=== PATIENT | female | born 1985 | race African-American/Black ===

== ENCOUNTER 2016-11-07 06:04 | Emergency (ER) | payer MEDICAID, MEDICARE ==
[~2016-11-07] VITALS: Ht 160 cm; Wt 73.0 kg
[~2016-11-07 06:04] MED LIST: PREN-88 PO; PRENATAL
[2016-11-07 07:33] LABS: HEMOGLOBIN 12.2 g/dL (12.0-16.0); MEAN CORPUSCULAR HEMOGLOBIN 30.7 pg (28.0-32.0); MEAN CORPUSCULAR VOLUME 93.1 fL (81.0-99.0); PLATELET 263 x1000/uL (130-400); RED BLOOD CELL COUNT 3.98 mill/uL (4.2-5.4); RED CELL DISTRIBUTION WIDTH 16.2 % (11.6-14.6); WHITE BLOOD COUNT 9.6 x1000/uL (4.5-11.0)
[2016-11-07 07:35] LABS: ANION GAP 14; CALCIUM 8.9 mg/dL (8.5-10.1); CARBON DIOXIDE 25 mEq/L (21-32); CHLORIDE 102 mEq/L (98-107); INDEX HEMOLYSI 1 (1-3); INDEX ICTERIC 1 (1-4); INDEX LIPEMIC 1 (1-3); UREA NITROGEN BLOOD 6 mg/dL (7-21); eGFR > 60 mL/min (>60)
[2016-11-07 08:03] LABS: HCG SCREEN NEGATIVE
[2016-11-07] MEDS ORDERED: HYDROCODONE/ACETAMINOPHEN 5/325MG TABLET PO ONE (09:45)
[2016-11-07 10:28] VITALS: BP 121/65
== END 2016-11-07 10:43 | disposition home or self-care (01) ==
LOC: ER 06:04
DX: J18.9 Pneumonia, unspecified organism (principal); J45.909 Unspecified asthma, uncomplicated; F17.210 Nicotine dependence, cigarettes, uncomplicated; Z88.0 Allergy status to penicillin; Z88.6 Allergy status to analgesic agent; Z88.5 Allergy status to narcotic agent; Z79.899 Other long term (current) drug therapy
CPT/HCPCS: 36415; 71010; 80048; 84703; 85027; 99285

== ENCOUNTER 2017-08-05 14:14 | Emergency (ER) | payer MEDICARE ==
[~2017-08-05] VITALS: Ht 170.2 cm; Wt 85.0 kg
[2017-08-05 14:37] VITALS: BP 84/52
== END 2017-08-05 19:15 | disposition left against medical advice (07) ==
LOC: ER 14:40
DX: R42 Dizziness and giddiness (principal); R55 Syncope and collapse; J45.909 Unspecified asthma, uncomplicated; Z88.0 Allergy status to penicillin; Z88.5 Allergy status to narcotic agent; Z87.01 Personal history of pneumonia (recurrent)
CPT/HCPCS: 99283

== ENCOUNTER 2018-09-17 18:57 | Emergency (ER) | payer MEDICAID, MEDICARE ==
[~2018-09-17] VITALS: Ht 165.1 cm; Wt 68.0 kg
[2018-09-17] MEDS ORDERED: ONDANSETRON HCL 4MG/2ML INJ IV STA (20:29)
[2018-09-17] MEDS ORDERED: MORPHINE SULFATE 4 MG/ML CPJ (NOT FOR IM USE) IV STA (20:29)
[2018-09-17 20:57] LABS: CLARITY URINE CLEAR (CLEAR); COLOR URINE YELLOW (YELLOW); KETONES URINE 2+ (NEGATIVE); LEUKOCYTE ESTERASE URINE NEGATIVE (NEGATIVE); NITRITE URINE NEGATIVE (NEGATIVE); OCCULT BLOOD URINE NEGATIVE (NEGATIVE); PROTEIN URINE 2+ (NEGATIVE); SPECIFIC GRAVITY URINE 1.012 (1.005-1.030)
[2018-09-17 21:26] LABS: BASOPHILS % 1.4 % (0.0-2.0); EOSINOPHILS % 1.3 % (0.0-5.0); HEMATOCRIT. 50.7 % (36.0-48.0); HEMOGLOBIN. 16.9 g/dL (12.0-16.0); LYMPHOCYTES % 27.5 % (20.0-50.0); MEAN CORPUSCULAR HEMOGLOBIN 30.7 pg (28.0-32.0); MEAN CORPUSCULAR VOLUME 92.3 fL (81.0-99.0); MONOCYTES % 6.1 % (2.0-8.0); NEUTROPHILS % 63.7 % (40.0-76.0); RED CELL DISTRIBUTION WIDTH 18.5 % (11.6-14.6)
[2018-09-17 21:28] LABS: CHLORIDE 105 mEq/L (98-107)
[2018-09-17 21:39] LABS: HCG SCREEN INDETERMINATE
[2018-09-17] MEDS ORDERED: SODIUM CHLORIDE 0.9% 1,000 ML IV ONE (21:47)
[2018-09-17] MEDS ORDERED: GABAPENTIN 300MG CAPSULE PO ONE (22:00)
[2018-09-17] MEDS ORDERED: IOHEXOL-350 100 ML BOTTLE ONE (22:52)
[2018-09-17 23:01] LABS: PLATELET 214 x1000/uL (130-400)
[2018-09-17 23:05] VITALS: BP 120/78
== END 2018-09-17 23:44 | disposition home or self-care (01) ==
LOC: ER 18:57
DX: R07.89 Other chest pain (principal); R06.00 Dyspnea, unspecified; I10 Essential (primary) hypertension; J45.909 Unspecified asthma, uncomplicated; Z88.6 Allergy status to analgesic agent; Z88.0 Allergy status to penicillin; Z86.711 Personal history of pulmonary embolism; Z79.01 Long term (current) use of anticoagulants; Z91.14 Patient's other noncompliance with medication regimen
CPT/HCPCS: 36415; 71045; 71275; 80053; 81003; 81025; 83690; 83880; 84484; 84703; 85025; 85379; 93005; 96361; 96374; 96375; 99284; J2270; J2405; Q9967; Z7610

== ENCOUNTER 2018-11-27 19:00 | Emergency (ER) | payer MEDICARE ==
[~2018-11-27] VITALS: Ht 167.6 cm; Wt 81.0 kg
[2018-11-27 19:01] VITALS: BP 122/72
== END 2018-11-27 21:01 | disposition home or self-care (01) ==
LOC: ER 19:00
DX: S61.412A Laceration without foreign body of left hand, initial encounter (principal); F41.9 Anxiety disorder, unspecified; J45.909 Unspecified asthma, uncomplicated; F32.9 Major depressive disorder, single episode, unspecified; F17.200 Nicotine dependence, unspecified, uncomplicated; W25.XXXA Contact with sharp glass, initial encounter; Y93.89 Activity, other specified; Y92.89 Other specified places as the place of occurrence of the external cause; Y99.8 Other external cause status; Z88.0 Allergy status to penicillin; Z88.5 Allergy status to narcotic agent
CPT/HCPCS: 99281

== ENCOUNTER 2018-12-16 23:16 | Emergency (ER) | payer MEDICARE ==
[~2018-12-16] VITALS: Ht 172.7 cm; Wt 80.0 kg
[2018-12-17] MEDS ORDERED: KETOROLAC 30MG/ML VIAL IV ONE
[2018-12-17] MEDS ORDERED: ENOXAPARIN 80MG/0.8ML SYR SUBCUT NR (00:45)
[2018-12-17 00:46] LABS: HEMATOCRIT 36.4 % (36.0-48.0); HEMOGLOBIN 12.8 g/dL (12.0-16.0); MEAN CORPUSCULAR HEMOGLOBIN 33.6 pg (28.0-32.0); MEAN CORPUSCULAR VOLUME 96.1 fL (81.0-99.0); PLATELET 186 x1000/uL (130-400); RED BLOOD CELL COUNT 3.79 mill/uL (4.2-5.4); RED CELL DISTRIBUTION WIDTH 14.7 % (11.6-14.6)
[2018-12-17 00:52] LABS: CHLORIDE 105 mEq/L (98-107)
[2018-12-17 00:56] LABS: PARTIAL THROMBOPLASTIN TIME 26.9 sec (23.4-31.0)
[2018-12-17 01:17] LABS: B-HCG QUANTITATIVE 24570 mIU/mL (<3)
[2018-12-17] MEDS ORDERED: ACETAMINOPHEN 500MG TABLET PO ONE (04:15)
[2018-12-17 08:59] VITALS: BP 101/63
== END 2018-12-17 09:02 | disposition home or self-care (01) ==
LOC: ER 23:16
DX: O26.891 Other specified pregnancy related conditions, first trimester (principal); R07.89 Other chest pain; M25.512 Pain in left shoulder; O99.331 Smoking (tobacco) complicating pregnancy, first trimester; F41.9 Anxiety disorder, unspecified; F32.9 Major depressive disorder, single episode, unspecified; J45.909 Unspecified asthma, uncomplicated; Z3A.11 11 weeks gestation of pregnancy; Z86.711 Personal history of pulmonary embolism; Z79.01 Long term (current) use of anticoagulants; Z88.0 Allergy status to penicillin; R06.09 Other forms of dyspnea; Z88.6 Allergy status to analgesic agent
CPT/HCPCS: 36415; 76801; 76817; 78580; 80053; 81025; 84702; 85027; 85610; 85730; 86850; 86900; 86901; 93005; 96372; 96374; 99284; A9540; J1650; J1885

== ENCOUNTER 2019-09-29 01:55 | Emergency (ER) | payer MEDICARE ==
[~2019-09-29] VITALS: Ht 160 cm; Wt 82.4 kg
[2019-09-29] MEDS ORDERED: BACITRACIN ZINC OINT UDPKT TOP ONE (04:15)
[2019-09-29] MEDS ORDERED: LIDOCAINE HCL/PF 1% 10 MG/ML 5ML VIAL IJ ONE ×2 (04:15→06:45)
[2019-09-29] MEDS ORDERED: ACETAMINOPHEN 325MG TABLET PO ONE (05:00)
[2019-09-29 06:12] VITALS: BP 128/70
[2019-09-29] MEDS ORDERED: LIDOCAINE HCL/PF 1% 10 MG/ML 5ML VIAL ONE (06:24)
== END 2019-09-29 06:53 | disposition home or self-care (01) ==
LOC: ER 02:37
DX: S52.122A Displaced fracture of head of left radius, initial encounter for closed fracture (principal); S09.90XA Unspecified injury of head, initial encounter; J45.909 Unspecified asthma, uncomplicated; Z88.5 Allergy status to narcotic agent; Z86.711 Personal history of pulmonary embolism; Z88.0 Allergy status to penicillin; W01.0XXA Fall on same level from slipping, tripping and stumbling without subsequent striking against object, initial encounter; Y93.89 Activity, other specified; Y92.89 Other specified places as the place of occurrence of the external cause; Y99.8 Other external cause status
CPT/HCPCS: 12002; 70450; 73030; 73070; 73100; 99284; J3490

== ENCOUNTER 2019-10-05 23:10 | Emergency (ER) | payer MEDICARE ==
[~2019-10-05] VITALS: Ht 160 cm; Wt 82.0 kg
[2019-10-05 23:28] VITALS: BP 116/75
== END 2019-10-06 00:58 | disposition left against medical advice (07) ==
LOC: ER 23:10
DX: S61.412D Laceration without foreign body of left hand, subsequent encounter (principal); Z53.21 Procedure and treatment not carried out due to patient leaving prior to being seen by health care provider; X58.XXXD Exposure to other specified factors, subsequent encounter

== ENCOUNTER 2019-10-06 02:41 | Emergency (ER) | payer MEDICARE ==
[~2019-10-06] VITALS: Ht 160 cm; Wt 82.0 kg
[2019-10-06 02:57] VITALS: BP 126/79
[2019-10-06] MEDS ORDERED: ACETAMINOPHEN 325MG TABLET PO ONE (03:45)
== END 2019-10-06 04:45 | disposition home or self-care (01) ==
LOC: ER 02:41
DX: S52.121D Displaced fracture of head of right radius, subsequent encounter for closed fracture with routine healing (principal); X58.XXXD Exposure to other specified factors, subsequent encounter; J45.909 Unspecified asthma, uncomplicated; Z88.0 Allergy status to penicillin; Z88.8 Allergy status to other drugs, medicaments and biological substances
CPT/HCPCS: 29105; 99283

== ENCOUNTER 2020-09-16 14:17 | Emergency (ER) | payer MEDICAID, MEDICARE ==
[~2020-09-16] VITALS: Ht 160 cm; Wt 121.0 kg
[~2020-09-16 14:17] MED LIST changes: +ALBU90AE INH; +LEVO500T2 MT; +METR500T MT; +PROT40 MT
[2020-09-16 14:36] VITALS: BP 124/85
== END 2020-09-17 08:29 | disposition left against medical advice (07) ==
LOC: ER 14:17
DX: R68.89 Other general symptoms and signs (principal); Z53.21 Procedure and treatment not carried out due to patient leaving prior to being seen by health care provider

== ENCOUNTER 2020-10-05 22:44 | Emergency (ER) | payer MEDICARE ==
[~2020-10-05] VITALS: Ht 165.1 cm; Wt 100.0 kg
[2020-10-05 22:58] VITALS: BP 150/90
[2020-10-05] MEDS ORDERED: ACETAMINOPHEN 325MG TABLET PO ONE (23:15)
[2020-10-06] MEDS ORDERED: IBUP-2029 MT (00:59)
[2020-10-06] MEDS ORDERED: DEXT15DR5 EACHEYE (00:59)
== END 2020-10-06 01:12 | disposition home or self-care (01) ==
LOC: ER 22:44
DX: H57.89 Other specified disorders of eye and adnexa (principal); F41.9 Anxiety disorder, unspecified; F12.10 Cannabis abuse, uncomplicated; Z79.899 Other long term (current) drug therapy; Z88.5 Allergy status to narcotic agent
CPT/HCPCS: 99283

== ENCOUNTER 2021-01-17 09:51 | Emergency (ER) | payer MEDICARE ==
[~2021-01-17] VITALS: Ht 180.3 cm; Wt 100.0 kg
[~2021-01-17 09:51] MED LIST changes: +DEXT15DR5 EACHEYE; +IBUP-2029 MT
[2021-01-17] MEDS ORDERED: OLANZAPINE 10 MG/VIAL IM ONE (10:15)
[2021-01-17] MEDS ORDERED: OLANZAPINE 5MG TABLET ODT PO ONE (10:15)
[2021-01-17 12:15] LABS: CLARITY URINE CLEAR (CLEAR); COLOR URINE YELLOW (YELLOW); KETONES URINE TRACE (NEGATIVE); LEUKOCYTE ESTERASE URINE NEGATIVE (NEGATIVE); NITRITE URINE NEGATIVE (NEGATIVE); OCCULT BLOOD URINE TRACE (NEGATIVE); PROTEIN URINE NEGATIVE (NEGATIVE); UROBILINOGEN URINE 0.2 E.U./dL (0.2-1.0)
[2021-01-17 12:16] LABS: CHLORIDE 116 mEq/L (98-107)
[2021-01-17 12:35] LABS: *AMPHETAMINES SCREEN URINE NEGATIVE (NEGATIVE); *BARBITURATES SCREEN URINE NEGATIVE (NEGATIVE)
[2021-01-17 12:36] LABS: *BENZODIAZEPINES SCREEN URINE NEGATIVE (NEGATIVE); *COCAINE SCREEN URINE NEGATIVE (NEGATIVE); METHADONE URINE SCREEN NEGATIVE (NEGATIVE); OPIATES URINE SCREEN NEGATIVE (NEGATIVE); PHENCYCLIDINE URINE SCREEN NEGATIVE (NEGATIVE)
[2021-01-17 12:45] LABS: BASOPHILS % 0.2 % (0.0-2.0); EOSINOPHILS % 1.2 % (0.0-5.0); HEMATOCRIT. 41.2 % (36.0-48.0); HEMOGLOBIN. 13.9 g/dL (12.0-16.0); LYMPHOCYTES % 38.4 % (20.0-50.0); MEAN CORPUSCULAR HEMOGLOBIN 31.9 pg (28.0-32.0); MEAN CORPUSCULAR VOLUME 94.8 fL (81.0-99.0); NEUTROPHILS % 50.2 % (40.0-76.0); PLATELET 182 x1000/uL (130-400); RED BLOOD CELL COUNT 4.35 mill/uL (4.2-5.4); RED CELL DISTRIBUTION WIDTH 18.3 % (11.6-14.6)
[2021-01-17 12:49] LABS: CANNABINOID URINE SCREEN PRESUMTIVE POSITIVE (NEGATIVE)
[2021-01-17 16:00] VITALS: BP 118/98
== END 2021-01-17 16:35 | disposition home or self-care (01) ==
LOC: ER 09:58
DX: T40.0X1A Poisoning by opium, accidental (unintentional), initial encounter (principal); R45.1 Restlessness and agitation; R74.01 Elevation of levels of liver transaminase levels; Y92.9 Unspecified place or not applicable
CPT/HCPCS: 36415; 80053; 80305; 81003; 81025; 85025; 96372; 99285; J3490; Z7610

== ENCOUNTER 2021-04-28 20:24 | Emergency (ER) | payer MEDICARE | END 2021-04-28 20:57 | disposition left against medical advice (07) | LOC: ER 20:24 | DX: Z53.21 Procedure and treatment not carried out due to patient leaving prior to being seen by health care provider (principal) ==

== ENCOUNTER 2021-04-29 09:26 | Emergency (ER) | payer MEDICARE ==
[~2021-04-29] VITALS: Ht 160 cm; Wt 84.0 kg
[2021-04-29] MEDS ORDERED: SODIUM CHLORIDE 0.9% 1,000 ML IV ONE (10:00)
[2021-04-29 10:24] LABS: EOSINOPHILS % 1.2 % (0.0-5.0); HEMATOCRIT. 44.9 % (36.0-48.0); HEMOGLOBIN. 15.2 g/dL (12.0-16.0); LYMPHOCYTES % 13.5 % (20.0-50.0); MEAN CORPUSCULAR HEMOGLOBIN 31.8 pg (28.0-32.0); MEAN CORPUSCULAR VOLUME 94.1 fL (81.0-99.0); MEAN PLATELET VOLUME 10.6 fl (7.4-10.4); MONOCYTES % 5.8 % (2.0-8.0); NEUTROPHILS % 78.5 % (40.0-76.0); PLATELET 213 x1000/uL (130-400); RED BLOOD CELL COUNT 4.77 mill/uL (4.2-5.4); RED CELL DISTRIBUTION WIDTH 15.6 % (11.6-14.6)
[2021-04-29 10:31] LABS: CHLORIDE 102 mEq/L (98-107)
[2021-04-29 10:33] LABS: PROTHROMBIN TIME 10.7 sec (9.6-11.0)
[2021-04-29 10:39] LABS: ETHANOL BLOOD 126 mg/dL
[2021-04-29 10:39] LABS: CLARITY URINE CLOUDY (CLEAR); COLOR URINE RED (YELLOW); KETONES URINE 3+ (NEGATIVE); LEUKOCYTE ESTERASE URINE 2+ (NEGATIVE); NITRITE URINE NEGATIVE (NEGATIVE); OCCULT BLOOD URINE 3+ (NEGATIVE); PROTEIN URINE 3+ (NEGATIVE); SPECIFIC GRAVITY URINE 1.011 (1.005-1.030); UROBILINOGEN URINE 0.2 E.U./dL (0.2-1.0)
[2021-04-29 10:57] LABS: *AMPHETAMINES SCREEN URINE NEGATIVE (NEGATIVE); *BARBITURATES SCREEN URINE NEGATIVE (NEGATIVE); *BENZODIAZEPINES SCREEN URINE NEGATIVE (NEGATIVE); *COCAINE SCREEN URINE NEGATIVE (NEGATIVE)
[2021-04-29 10:58] LABS: METHADONE URINE SCREEN NEGATIVE (NEGATIVE); OPIATES URINE SCREEN NEGATIVE (NEGATIVE); PHENCYCLIDINE URINE SCREEN NEGATIVE (NEGATIVE)
[2021-04-29 11:01] LABS: CANNABINOID URINE SCREEN PRESUMTIVE POSITIVE (NEGATIVE)
[2021-04-29] MEDS ORDERED: MORPHINE SULFATE 4 MG/ML CPJ (NOT FOR IM USE) IV ONE (11:15)
[2021-04-29] MEDS ORDERED: FENTANYL CITRATE/PF 50MCG/ML 2ML VIAL IV ONE ×2 (12:45→16:30)
[2021-04-29] MEDS ORDERED: CEFTRIAXONE 1 G PREMIX 50 ML IV ONE (12:45)
[2021-04-29] MEDS ORDERED: CEFTRIAXONE 2 G PREMIX 50 ML IV ONE (13:15)
[2021-04-29] MEDS ORDERED: MORPHINE SULFATE 2 MG/ML CPJ (NOT FOR IM USE) IV PRN (14:45)
[2021-04-29] MEDS ORDERED: FAMOTIDINE 20MG/2ML VIAL IV SCH (15:00)
[2021-04-29] MEDS ORDERED: HYDROCODONE/ACETAMINOPHEN 5/325MG TABLET PO PRN (15:00)
[2021-04-29] MEDS ORDERED: DEXT 5%/0.9% NACL 1,000 ML IV SCH (15:00)
[2021-04-29] MEDS ORDERED: IOHEXOL-300 100 ML BOTTLE ONE (17:58)
[2021-04-29 18:00] VITALS: BP 133/82
[2021-04-30 09:13] LABS: UCG SCREEN NEGATIVE
== END 2021-04-29 17:53 | disposition short-term general hospital (02) ==
LOC: ER 09:26 → CANBEDREQ 19:30
DX: R55 Syncope and collapse (principal); Z88.0 Allergy status to penicillin; Z88.5 Allergy status to narcotic agent; Z79.899 Other long term (current) drug therapy
CPT/HCPCS: 36415; 70450; 71045; 71275; 72125; 74177; 80053; 80305; 80320; 81003; 81025; 83605; 83690; 83880; 84484; 85025; 85610; 86850; 86900; 86901; 87086; 93005; 96374; 96375; 96376; 99291; J0696; J2270; J3010; J3490; J7030; Q9967; G0480

== ENCOUNTER 2021-05-07 21:14 | Inpatient (IN) | payer MEDICARE ==
[~2021-05-07] VITALS: Ht 160 cm; Wt 82.0 kg
[2021-05-07] MEDS ORDERED: KETOROLAC 30MG/ML VIAL IV STA (22:19)
[2021-05-07] MEDS ORDERED: ACETAMINOPHEN 325MG TABLET PO STA (22:19)
[2021-05-07] MEDS ORDERED: SODIUM CHLORIDE 0.9% 1,000 ML IV ONE (22:30)
[2021-05-07 23:06] LABS: BASOPHILS % 0.4 % (0.0-2.0); EOSINOPHILS % 2.1 % (0.0-5.0); LYMPHOCYTES % 35.3 % (20.0-50.0); MEAN CORPUSCULAR VOLUME 95.1 fL (81.0-99.0); MEAN PLATELET VOLUME 10.3 fl (7.4-10.4); MONOCYTES % 7.7 % (2.0-8.0); NEUTROPHILS % 54.5 % (40.0-76.0); PLATELET 218 x1000/uL (130-400); RED BLOOD CELL COUNT 4.52 mill/uL (4.2-5.4); RED CELL DISTRIBUTION WIDTH 16.2 % (11.6-14.6)
[2021-05-07 23:11] LABS: CHLORIDE 111 mEq/L (98-107)
[2021-05-07 23:15] LABS: D-DIMER 1.36 mg/L FEU (<0.50); PROTHROMBIN TIME 10.7 sec (9.6-11.0)
[2021-05-07 23:17] LABS: HCG SCREEN NEGATIVE
[2021-05-07] MEDS ORDERED: CEFTRIAXONE 1 G PREMIX 50 ML IV SCH (23:30)
[2021-05-07] MEDS ORDERED: SODIUM CHLORIDE 0.9% 1000ML BAG (SEPSIS BOLUS) IV SCH (23:30)
[2021-05-08] MEDS ORDERED: IOHEXOL-350 100 ML BOTTLE ONE (05:10)
[2021-05-08 05:38] LABS: CLARITY URINE CLEAR (CLEAR); COLOR URINE YELLOW (YELLOW); KETONES URINE NEGATIVE (NEGATIVE); LEUKOCYTE ESTERASE URINE NEGATIVE (NEGATIVE); NITRITE URINE NEGATIVE (NEGATIVE); OCCULT BLOOD URINE NEGATIVE (NEGATIVE); PROTEIN URINE NEGATIVE (NEGATIVE); SPECIFIC GRAVITY URINE 1.081 (1.005-1.030); UROBILINOGEN URINE 0.2 E.U./dL (0.2-1.0)
[2021-05-08 07:30] VITALS: BP 123/69
== END 2021-05-08 08:34 | disposition left against medical advice (07) | DRG 463 ==
LOC: ER 21:14 → MICUSO 05-08 03:41 → 6EST 05-08 08:26 → MICUSO 05-08 08:32
PROVIDERS: ADMIT Internal Medicine; ATTEND Internal Medicine
DX: N12 Tubulo-interstitial nephritis, not specified as acute or chronic (principal); F41.9 Anxiety disorder, unspecified; Z53.29 Procedure and treatment not carried out because of patient's decision for other reasons; Z88.1 Allergy status to other antibiotic agents; Z88.0 Allergy status to penicillin; Z88.6 Allergy status to analgesic agent; Z79.899 Other long term (current) drug therapy; Z86.711 Personal history of pulmonary embolism; Z87.440 Personal history of urinary (tract) infections
CPT/HCPCS: 36415; 71045; 71275; 74177; 80053; 81003; 83605; 84145; 84484; 84703; 85025; 85379; 93005; 99285; J0696; J1885; J7030; J7040; Q9967

== ENCOUNTER 2021-09-03 14:41 | Emergency (ER) | payer MEDICARE ==
[~2021-09-03] VITALS: Ht 170.2 cm; Wt 66.0 kg
[2021-09-03] MEDS ORDERED: FENTANYL CITRATE/PF 50MCG/ML 2ML VIAL IM ONE (15:30)
[2021-09-03 15:57] VITALS: BP 130/80
[2021-09-03] MEDS ORDERED: CLIN300C12 MT (17:24)
[2021-09-03] MEDS ORDERED: IBUP-2029 MT (17:24)
[2021-09-03] MEDS ORDERED: T3 PO (17:24)
[2021-09-03] MEDS ORDERED: OXYM30SP26 BOTHNSTRLS (17:24)
== END 2021-09-03 17:46 | disposition home or self-care (01) ==
LOC: ER 14:41
DX: S09.8XXA Other specified injuries of head, initial encounter (principal); S02.2XXA Fracture of nasal bones, initial encounter for closed fracture; S16.1XXA Strain of muscle, fascia and tendon at neck level, initial encounter; I10 Essential (primary) hypertension; J45.909 Unspecified asthma, uncomplicated; Y08.89XA Assault by other specified means, initial encounter; Y93.9 Activity, unspecified; Y92.9 Unspecified place or not applicable; J34.89 Other specified disorders of nose and nasal sinuses; Z88.3 Allergy status to other anti-infective agents; Z88.5 Allergy status to narcotic agent
CPT/HCPCS: 70450; 70486; 72125; 96372; 99284; J3010

== ENCOUNTER 2021-09-06 16:03 | Inpatient (IN) | payer MEDICARE ==
[~2021-09-06] VITALS: Ht 160 cm; Wt 77.1 kg
[~2021-09-06 16:03] MED LIST changes: +CLIN300C12 MT; +OXYM30SP26 BOTHNSTRLS; +T3 PO
[2021-09-06] MEDS ORDERED: ONDANSETRON HCL 4MG/2ML INJ IV ONE ×2 (17:15→22:00)
[2021-09-06] MEDS ORDERED: MORPHINE SULFATE 4 MG/ML CPJ (NOT FOR IM USE) IV ONE (17:15)
[2021-09-06 17:19] LABS: BASOPHILS % 1.7 % (0.0-2.0); EOSINOPHILS % 3.7 % (0.0-5.0); HEMOGLOBIN. 14.5 g/dL (12.0-16.0); LYMPHOCYTES % 32.9 % (20.0-50.0); MEAN CORPUSCULAR HEMOGLOBIN 31.6 pg (28.0-32.0); MEAN CORPUSCULAR VOLUME 93.9 fL (81.0-99.0); MEAN PLATELET VOLUME 10.3 fl (7.4-10.4); MONOCYTES % 8.5 % (2.0-8.0); NEUTROPHILS % 53.2 % (40.0-76.0); PLATELET 194 x1000/uL (130-400); RED BLOOD CELL COUNT 4.58 mill/uL (4.2-5.4); RED CELL DISTRIBUTION WIDTH 16.3 % (11.6-14.6)
[2021-09-06 17:22] LABS: CHLORIDE 97 mEq/L (98-107)
[2021-09-06 17:38] LABS: HCG SCREEN NEGATIVE
[2021-09-06] MEDS ORDERED: HYDR-4001 MT (20:29)
[2021-09-06] MEDS ORDERED: PANTOPRAZOLE SODIUM 40 MG/VIAL IV ONE (22:00)
[2021-09-07 08:00] VITALS: BP 119/84
[2021-09-07] MEDS ORDERED: NALOXONE HCL 0.4MG/ML VIAL IV PRN (08:45)
[2021-09-07 09:53] VITALS: BP 118/66
[2021-09-07 12:00] VITALS: BP 128/86
[2021-09-07] MEDS: DEXT 5%/0.9% NACL 1,000 ML IV SCH (13:00)
[2021-09-07] MEDS: DOXYCYCLINE HYCLATE 100MG CAPSULE PO SCH ×2 (13:00→18:05)
[2021-09-07] MEDS: MORPHINE SULFATE 2 MG/ML CPJ (NOT FOR IM USE) IV PRN ×2 (13:00→21:46)
[2021-09-07] MEDS ORDERED: IPRATROPIUM/ALBUTEROL 0.5-3(2.5)MG/3ML NEB HHN PRN (13:45)
[2021-09-07] MEDS ORDERED: ACETAMINOPHEN 650MG SUPP PR PRN (13:45)
[2021-09-07] MEDS: PANTOPRAZOLE SODIUM 40 MG/VIAL IV SCH ×3 (13:45→18:05)
[2021-09-07] MEDS ORDERED: BISACODYL 10MG SUPP PR PRN (13:45)
[2021-09-07] MEDS ORDERED: DIPHENHYDRAMINE 50MG/ML VIAL IV PRN (13:45)
[2021-09-07] MEDS ORDERED: ACETAMINOPHEN 325MG TABLET PO PRN (13:45)
[2021-09-07] MEDS ORDERED: LORAZEPAM 2MG/ML CPJ IV PRN (13:45)
[2021-09-07] MEDS ORDERED: CEFTRIAXONE SODIUM 500 MG/VIAL IM NR (14:00)
[2021-09-07] MEDS: THIAMINE HCL 100MG TABLET PO SCH (15:36)
[2021-09-07] MEDS: FOLIC ACID 1MG TABLET PO SCH (15:37)
[2021-09-07] MEDS: MULTIVITAMINS,THER W-MINERALS TABLET PO SCH (15:38)
[2021-09-07 16:00] VITALS: BP 143/85
[2021-09-07 16:28] LABS: BASOPHILS % 1.4 % (0.0-2.0); EOSINOPHILS % 5.2 % (0.0-5.0); HEMATOCRIT. 41.5 % (36.0-48.0); HEMOGLOBIN. 13.9 g/dL (12.0-16.0); LYMPHOCYTES % 21.7 % (20.0-50.0); MEAN CORPUSCULAR HEMOGLOBIN 31.9 pg (28.0-32.0); MEAN CORPUSCULAR VOLUME 95.3 fL (81.0-99.0); MEAN PLATELET VOLUME 9.6 fl (7.4-10.4); MONOCYTES % 8.6 % (2.0-8.0); NEUTROPHILS % 63.1 % (40.0-76.0); PLATELET 138 x1000/uL (130-400); RED BLOOD CELL COUNT 4.36 mill/uL (4.2-5.4); RED CELL DISTRIBUTION WIDTH 16.4 % (11.6-14.6)
[2021-09-07 16:37] LABS: CHLORIDE 92 mEq/L (98-107)
[2021-09-07 16:39] LABS: INR 1.1; PROTHROMBIN TIME 11.4 sec (9.6-11.0)
[2021-09-07 16:40] LABS: CLARITY URINE CLEAR (CLEAR); COLOR URINE YELLOW (YELLOW); KETONES URINE 4+ (NEGATIVE); LEUKOCYTE ESTERASE URINE NEGATIVE (NEGATIVE); NITRITE URINE NEGATIVE (NEGATIVE); OCCULT BLOOD URINE TRACE (NEGATIVE); PH URINE 5.5 (4.5-8.0); PROTEIN URINE 1+ (NEGATIVE); SPECIFIC GRAVITY URINE 1.021 (1.005-1.030)
[2021-09-07 16:49] LABS: *AMPHETAMINES SCREEN URINE NEGATIVE (NEGATIVE); *BARBITURATES SCREEN URINE NEGATIVE (NEGATIVE)
[2021-09-07 16:50] LABS: *BENZODIAZEPINES SCREEN URINE NEGATIVE (NEGATIVE); *COCAINE SCREEN URINE NEGATIVE (NEGATIVE); METHADONE URINE SCREEN NEGATIVE (NEGATIVE); OPIATES URINE SCREEN NEGATIVE (NEGATIVE); PHENCYCLIDINE URINE SCREEN NEGATIVE (NEGATIVE)
[2021-09-07 16:55] LABS: CANNABINOID URINE SCREEN PRESUMTIVE POSITIVE (NEGATIVE)
[2021-09-07 17:20] LABS: TOTAL IRON BINDING CAPACITY 459 ug/dL (250-450)
[2021-09-07] MEDS ORDERED: POTASSIUM CHLORIDE 20MEQ TABLET SR PO NR (17:30)
[2021-09-07 17:31] LABS: FERRITIN 225 ng/mL (10-291)
[2021-09-07 17:42] LABS: HEPATITIS B SURFACE ANTIGEN NEGATIVE
[2021-09-07 17:43] LABS: VITAMIN B12 SERUM 711 pg/mL (211-911)
[2021-09-07 20:00] VITALS: BP 104/60
[2021-09-07] MEDS ORDERED: FAMOTIDINE 20MG TABLET PO SCH (21:00)
[2021-09-08] VITALS: BP 110/68
[2021-09-08 04:00] VITALS: BP 108/64
[2021-09-08 06:40] LABS: CHLORIDE 99 mEq/L (98-107)
[2021-09-08] MEDS: DEXT 5%/0.9% NACL 1,000 ML IV SCH (06:48)
[2021-09-08] MEDS: MORPHINE SULFATE 2 MG/ML CPJ (NOT FOR IM USE) IV PRN (06:48)
[2021-09-08 07:03] LABS: BASOPHILS % 0.7 % (0.0-2.0); EOSINOPHILS % 7.4 % (0.0-5.0); HEMATOCRIT. 36.4 % (36.0-48.0); HEMOGLOBIN. 12.3 g/dL (12.0-16.0); LYMPHOCYTES % 32.5 % (20.0-50.0); MEAN CORPUSCULAR VOLUME 94.1 fL (81.0-99.0); MEAN PLATELET VOLUME 11.2 fl (7.4-10.4); MONOCYTES % 8.2 % (2.0-8.0); NEUTROPHILS % 51.2 % (40.0-76.0); PLATELET 112 x1000/uL (130-400); RED BLOOD CELL COUNT 3.86 mill/uL (4.2-5.4); RED CELL DISTRIBUTION WIDTH 16.1 % (11.6-14.6)
[2021-09-08 08:00] VITALS: BP 104/57
[2021-09-08] MEDS: FOLIC ACID 1MG TABLET PO SCH (09:00)
[2021-09-08] MEDS: THIAMINE HCL 100MG TABLET PO SCH (09:00)
[2021-09-08] MEDS: DOXYCYCLINE HYCLATE 100MG CAPSULE PO SCH ×2 (09:00→18:26)
[2021-09-08] MEDS: MULTIVITAMINS,THER W-MINERALS TABLET PO SCH (09:00)
[2021-09-08] MEDS: PANTOPRAZOLE SODIUM 40 MG/VIAL IV SCH ×2 (09:58→18:26)
[2021-09-08 11:28] LABS: INR 1.1; PROTHROMBIN TIME 11.4 sec (9.6-11.0)
[2021-09-08 12:00] VITALS: BP 100/70
[2021-09-08] MEDS ORDERED: SIMETHICONE 40 MG/0.6 ML 15ML ONE (14:07)
[2021-09-08] MEDS ORDERED: PROPOFOL 200MG/20ML VIAL IV ONE (14:17)
[2021-09-08] MEDS ORDERED: LIDOCAINE HCL/PF 1% 10 MG/ML 5ML VIAL ONE (14:18)
[2021-09-08] MEDS ORDERED: FENTANYL CITRATE/PF 50MCG/ML 2ML VIAL ONE (14:18)
[2021-09-08] MEDS ORDERED: DEXAMETHASONE 4MG/ML 1ML VIAL ONE (14:18)
[2021-09-08] MEDS ORDERED: MIDAZOLAM HCL 2 MG/2 ML VIAL ONE (14:18)
[2021-09-08] MEDS ORDERED: ONDANSETRON HCL 4MG/2ML INJ ONE (14:18)
[2021-09-08] MEDS ORDERED: PHENYLEPHRINE HCL 10 MG/ML 1ML (IV VIAL) IV ONE (14:23)
[2021-09-08 16:00] VITALS: BP 108/69
[2021-09-08 20:00] VITALS: BP 135/91
[2021-09-09] VITALS: BP 108/70
[2021-09-09] MEDS: ONDANSETRON HCL 4MG/2ML INJ IV PRN ×2 (00:11→08:59)
[2021-09-09] MEDS: DEXT 5%/0.9% NACL 1,000 ML IV SCH ×3 (03:30→16:01)
[2021-09-09 04:00] VITALS: BP 132/84
[2021-09-09 05:11] LABS: HIV SCREEN 4G Non Reactive (Non Reactive)
[2021-09-09 08:00] VITALS: BP 128/88
[2021-09-09] MEDS: DOXYCYCLINE HYCLATE 100MG CAPSULE PO SCH (08:58)
[2021-09-09] MEDS: PANTOPRAZOLE SODIUM 40 MG/VIAL IV SCH ×2 (08:58→16:51)
[2021-09-09] MEDS: MULTIVITAMINS,THER W-MINERALS TABLET PO SCH (08:58)
[2021-09-09] MEDS: FOLIC ACID 1MG TABLET PO SCH (08:59)
[2021-09-09] MEDS: THIAMINE HCL 100MG TABLET PO SCH (08:59)
[2021-09-09 12:00] VITALS: BP 127/78
[2021-09-09] MEDS: MORPHINE SULFATE 2 MG/ML CPJ (NOT FOR IM USE) IV PRN (12:14)
[2021-09-09] MEDS ORDERED: T3 PO (14:31)
[2021-09-09] MEDS ORDERED: PANT40SU MT (14:31)
[2021-09-09] MEDS ORDERED: DOXY150T5 PO (14:31)
[2021-09-09 15:14] VITALS: BP 116/72
[2021-09-09 16:00] VITALS: BP 116/72
[2021-09-10 17:06] LABS: NEISSERIA GONORRHOEAE NAA Negative (Negative)
== END 2021-09-09 16:55 | disposition home or self-care (01) | DRG 241 ==
LOC: ER 16:03 → 5WST 09-07 03:01 → UNDOADMIN 09-07 03:01 → EDBEDREQTM 09-07 04:12 → EDBEDREQSVC 09-07 04:12 → ENRESERV 09-07 07:24 → CANBEDREQ 09-07 10:11 → UNDODISIN 09-08 17:15
PROVIDERS: ADMIT Internal Medicine; ATTEND Internal Medicine
PROC: 0DB68ZZ Excision of Stomach, Via Natural or Artificial Opening Endoscopic (ICD-10-PCS; principal; 2021-09-08)
DX: K29.71 Gastritis, unspecified, with bleeding (principal); K76.0 Fatty (change of) liver, not elsewhere classified; E87.1 Hypo-osmolality and hyponatremia; S02.2XXA Fracture of nasal bones, initial encounter for closed fracture; D64.9 Anemia, unspecified; F10.10 Alcohol abuse, uncomplicated; F17.210 Nicotine dependence, cigarettes, uncomplicated; N89.8 Other specified noninflammatory disorders of vagina; I10 Essential (primary) hypertension; J45.909 Unspecified asthma, uncomplicated; Z20.822 Contact with and (suspected) exposure to COVID-19; N93.9 Abnormal uterine and vaginal bleeding, unspecified; Z79.01 Long term (current) use of anticoagulants; Z82.49 Family history of ischemic heart disease and other diseases of the circulatory system; Z86.711 Personal history of pulmonary embolism; Z86.718 Personal history of other venous thrombosis and embolism; Z83.3 Family history of diabetes mellitus; Z72.89 Other problems related to lifestyle; Z79.899 Other long term (current) drug therapy; Z88.5 Allergy status to narcotic agent; Z88.8 Allergy status to other drugs, medicaments and biological substances; Y08.89XA Assault by other specified means, initial encounter; Y93.89 Activity, other specified; Y92.89 Other specified places as the place of occurrence of the external cause; Y99.8 Other external cause status; K25.9 Gastric ulcer, unspecified as acute or chronic, without hemorrhage or perforation
CPT/HCPCS: 36415; 70486; 73060; 73590; 74176; 76830; 76856; 80048; 80053; 80305; 81003; 82607; 82728; 83540; 83550; 84703; 85025; 85379; 86592; 86705; 86709; 86803; 87340; 87389; 87426; 87491; 87591; 88305; 93970; 99285; C9113; J0696; J1100; J2250; J2270; J2370; J2405; J2704; J3010; J3490; J7042